=== PATIENT | male | born 1945 | race Hispanic/Latino ===

== ENCOUNTER → 2017-09-05 | Outpatient (CLI) | payer OTHER ==
[~2017-09-05] MED LIST: AEC81 PO; AMLO5TAB2 PO; CARV3.12 PO; CIPR-245 PO; FINA5TAB41 PO; SILO8CAP PO
== END | disposition home or self-care (01) ==
LOC: RAH 12:52
PROVIDERS: ATTEND Urology
DX: N45.3 Epididymo-orchitis (principal); N43.2 Other hydrocele
CPT/HCPCS: 76870

== ENCOUNTER → 2020-10-20 | Outpatient (CLI) | payer OTHER ==
[~2020-10-20] MED LIST changes: +AMLO-257 PO; -AMLO5TAB2 PO; -CIPR-245 PO; +CIPR500T10 PO; -SILO8CAP PO; +SILO8CAP2 PO
== END | disposition home or self-care (01) ==
LOC: RAH 14:45
PROVIDERS: ATTEND Internal Medicine
DX: J84.10 Pulmonary fibrosis, unspecified (principal); J43.2 Centrilobular emphysema
CPT/HCPCS: 71046

== ENCOUNTER → 2020-12-29 | Outpatient (CLI) | payer OTHER ==
[~2020-12-29] MED LIST changes: +IOHEXOL 350 MG/ML 100ML INFUS..BTL IV ONE
== END | disposition home or self-care (01) ==
LOC: RAH 07:41
PROVIDERS: ATTEND Internal Medicine
DX: K80.20 Calculus of gallbladder without cholecystitis without obstruction (principal); J47.9 Bronchiectasis, uncomplicated; N28.1 Cyst of kidney, acquired; R63.4 Abnormal weight loss; J84.112 Idiopathic pulmonary fibrosis; K76.89 Other specified diseases of liver
CPT/HCPCS: 74177; Q9967

== ENCOUNTER → 2022-03-13 | Outpatient (CLI) | payer OTHER ==
[~2022-03-13] MED LIST changes: -IOHEXOL 350 MG/ML 100ML INFUS..BTL IV ONE
== END | disposition home or self-care (01) ==
LOC: RAH 15:32
PROVIDERS: ATTEND Internal Medicine
DX: M47.815 Spondylosis without myelopathy or radiculopathy, thoracolumbar region (principal)
CPT/HCPCS: 71046

== ENCOUNTER → 2022-08-21 | Outpatient (CLI) | payer OTHER | END | disposition home or self-care (01) | LOC: RAH 13:59 | PROVIDERS: ATTEND Internal Medicine Cardiovascular Disease | DX: I27.20 Pulmonary hypertension, unspecified (principal); I11.9 Hypertensive heart disease without heart failure; J84.10 Pulmonary fibrosis, unspecified; R94.31 Abnormal electrocardiogram [ECG] [EKG]; R05.8 Other specified cough | CPT/HCPCS: 93306 ==

== ENCOUNTER 2022-11-11 10:41 | Emergency (ER) | payer OTHER ==
[~2022-11-11] VITALS: Ht 177.8 cm; Wt 77.1 kg
[2022-11-11 11:25] LABS: BASOPHILS % (AUTO) 0.2 % (0.0-5.0); HEMATOCRIT 36.3 % (42-54); LYMPHOCYTES % (AUTO) 2.1 % (21.0-51.0); MEAN CORPUSCULAR HEMOGLOBIN 24.4 pg (27.0-33.0); MEAN CORPUSCULAR HGB CONC 30.3 g/dL (32.0-36.0); MEAN CORPUSCULAR VOLUME 80.5 fL (79-99); NEUTROPHILS % (AUTO) 94.3 % (40.0-77.0); PLATELET COUNT (AUTO) 316 K/uL (130-400); RED BLOOD CELL COUNT(AUTO) 4.51 MIL/uL (4.50-6.20); RED CELL DISTRIBUTION WIDTH 15.2 % (11.0-15.5); WHITE BLOOD COUNT (AUTO) 14.1 K/uL (4.8-10.8)
[2022-11-11] MEDS ORDERED: KETOROLAC 30MG VIAL (30MG/ML) IVP ONE (11:30)
[2022-11-11] MEDS ORDERED: FAMOTIDINE 20MG TAB PO ONE (11:30)
[2022-11-11] MEDS ORDERED: 0.9%NACL 1000ML 1,000 ML IV ONE (11:30)
[2022-11-11] MEDS ORDERED: ONDANSETRON 4MG INJ IVP ONE (11:30)
[2022-11-11 11:37] LABS: CREATININE 0.9 mg/dL (0.5-1.5); POTASSIUM 3.9 mmol/L (3.5-5.1)
[2022-11-11 11:43] LABS: ALBUMIN 2.7 g/dL (3.5-5.0); TOTAL PROTEIN, SERUM 7.4 g/dL (6.0-8.3)
[2022-11-11 11:58] LABS: APPEARANCE,URINE CLEAR (CLEAR); BILIRUBIN,URINE 0.5 mg/dL (NEGATIVE); COLOR,URINE YELLOW (YELLOW); GLUCOSE, URINE (UA) NEGATIVE (NEGATIVE); KETONES,URINE 5 mg/dL (NEGATIVE); LEUKOCYTE ESTERASE ,URINE 75 Leu/uL (NEGATIVE); NITRATE,URINE NEGATIVE (NEGATIVE); OCCULT BLOOD,URINE NEGATIVE (NEGATIVE); PROTEIN,URINE 50 mg/dL (NEGATIVE)
[2022-11-11] MEDS ORDERED: IOHEXOL 350 MG/ML 100ML INFUS..BTL IV ONE (12:00)
[2022-11-11 12:16] LABS: BACTERIA,URINE RARE /HPF (None Seen); MUCUS,URINE RARE LPF (None Seen); SQUAMOUS EPITHELIAL CELL,UR RARE /HPF (0-2)
[2022-11-11] MEDS ORDERED: CEFTRIAXONE 2GM VIAL IVP ONE (13:30)
[2022-11-11] MEDS ORDERED: LINA145C PO (13:41)
[2022-11-11] MEDS ORDERED: DSSL PO (13:41)
[2022-11-11] MEDS ORDERED: CEPH500C2 PO (13:41)
[2022-11-11 14:38] VITALS: BP 123/72
== END 2022-11-11 15:12 | disposition home or self-care (01) ==
LOC: EDH 10:41
DX: N39.0 Urinary tract infection, site not specified (principal); K59.00 Constipation, unspecified; I10 Essential (primary) hypertension; Z79.82 Long term (current) use of aspirin
CPT/HCPCS: 99285; 74177; 96374; 71045; 96361; 96375; 84484 ×2; 80053; 83690; 85025; 87088; 81001; 36415; 93005; J7030; J0696; J2405; J1885; Q9967

== ENCOUNTER 2022-11-12 04:26 | Inpatient (IN) | payer OTHER ==
[~2022-11-12] VITALS: Ht 172.7 cm; Wt 89.8 kg
[~2022-11-12 04:26] MED LIST changes: +CEPH500C2 PO; +DSSL PO; +LINA145C PO
[2022-11-12 05:13] LABS: BASOPHILS % (AUTO) 0.2 % (0.0-5.0); EOSINOPHILS % (AUTO) 0.1 % (0.0-8.0); LYMPHOCYTES % (AUTO) 3.7 % (21.0-51.0); MEAN CORPUSCULAR HEMOGLOBIN 24.3 pg (27.0-33.0); MEAN CORPUSCULAR HGB CONC 30.3 g/dL (32.0-36.0); MEAN CORPUSCULAR VOLUME 80.4 fL (79-99); MONOCYTES % (AUTO) 1.6 % (3.0-13.0); PLATELET COUNT (AUTO) 306 K/uL (130-400); RED BLOOD CELL COUNT(AUTO) 4.48 MIL/uL (4.50-6.20); RED CELL DISTRIBUTION WIDTH 15.4 % (11.0-15.5); WHITE BLOOD COUNT (AUTO) 20.3 K/uL (4.8-10.8)
[2022-11-12 05:23] LABS: CARBON DIOXIDE 26 mmol/L (21-32); CHLORIDE 104 mmol/L (101-111); GLOMERULAR FILTR. RATE CALC 78 mL/min (>90); GLUCOSE,RANDOM 123 mg/dL (70-105); POTASSIUM 4.2 mmol/L (3.5-5.1); SODIUM SERUM 139 mmol/L (136-145); UREA NITROGEN, BLOOD 33 mg/dL (7-18)
[2022-11-12 05:26] LABS: APPEARANCE,URINE CLEAR (CLEAR); BILIRUBIN,URINE NEGATIVE (NEGATIVE); COLOR,URINE YELLOW (YELLOW); GLUCOSE, URINE (UA) NEGATIVE (NEGATIVE); KETONES,URINE NEGATIVE (NEGATIVE); LEUKOCYTE ESTERASE ,URINE NEGATIVE Leu/uL (NEGATIVE); NITRATE,URINE NEGATIVE (NEGATIVE); OCCULT BLOOD,URINE NEGATIVE (NEGATIVE); PROTEIN,URINE 50 mg/dL (NEGATIVE)
[2022-11-12 05:27] LABS: ALANINE AMINOTRANSFERASE 16 U/L (12-78); ALBUMIN 2.5 g/dL (3.5-5.0); ASPARTATE AMINOTRANSFERASE 14 U/L (10-37); TOTAL PROTEIN, SERUM 7.3 g/dL (6.0-8.3)
[2022-11-12 05:30] LABS: LIPASE < 50 U/L (114-286)
[2022-11-12 05:42] LABS: B-TYPE NATRIURETIC PEPTIDE 161 pg/mL (0-100)
[2022-11-12] MEDS ORDERED: MAG/ALUM/SIMETH 30 ML UDCUP PO PRN (07:00)
[2022-11-12] MEDS ORDERED: MAGNESIUM 2GM PREMIX 50ML 50 ML IV PRN (07:00)
[2022-11-12] MEDS ORDERED: HYDROCODONE/ACETAMINOPHEN 5/325 MG TAB PO PRN ×2 (07:00)
[2022-11-12] MEDS ORDERED: NITROGLYCERIN 0.4 MG SL TAB SL PRN (07:00)
[2022-11-12] MEDS ORDERED: ONDANSETRON 4MG INJ IV PRN (07:00)
[2022-11-12] MEDS ORDERED: GUAIFENESIN-DM 200/20 MG 10 ML PO PRN (07:00)
[2022-11-12] MEDS ORDERED: LIDOCAINE HCL-MPF 1% 2ML VIAL IV PRN (07:00)
[2022-11-12] MEDS ORDERED: VANCOMYCIN 1G/250ML KIT 250 ML IV ONE (07:00)
[2022-11-12] MEDS ORDERED: DIPHENHYDRAMINE HCL 25 MG CAPSULE PO PRN (07:00)
[2022-11-12] MEDS ORDERED: KCL 20 MEQ ERTAB PO PRN (07:00)
[2022-11-12] MEDS ORDERED: DiphenhydrAMINE HCL 50 MG/ML VIAL IV PRN (07:00)
[2022-11-12] MEDS ORDERED: LACTULOSE 20 GM/30 ML UDCUP PO PRN (07:00)
[2022-11-12] MEDS ORDERED: HYDROMORPHONE 1 MG INJ IV PRN (07:00)
[2022-11-12] MEDS ORDERED: ACETAMINOPHEN 325 MG TAB PO PRN ×2 (07:00)
[2022-11-12] MEDS ORDERED: POTASSIUM CHLORIDE 20MEQ/100ML 100 ML IV PRN (07:00)
[2022-11-12] MEDS ORDERED: POTASSIUM CHLORIDE 10% ELIXIR 20 MEQ/15 ML UDCUP PO PRN (07:00)
[2022-11-12] MEDS ORDERED: VANCOMYCIN PROTOCOL PER PHARMACY IV SCH (07:30)
[2022-11-12 08:00] LABS: INR 1.23 (0.85-1.15); PROTHROMBIN TIME 13.3 SEC (9.6-11.6)
[2022-11-12 08:01] LABS: PARTIAL THROMBOPLASTIN TIME 30.3 SEC (26.3-35.5)
[2022-11-12] MEDS: CEFEPIME HCL 2 GM VIAL IVP SCH ×2 (08:19→19:46)
[2022-11-12] MEDS: LACTATED RINGERS 1000ML 1,000 ML IV SCH ×2 (08:19→21:57)
[2022-11-12 08:30] LABS: THYROID STIMULATING HORMONE < 0.01 uIU/mL (0.36-3.74)
[2022-11-12 08:47] LABS: % IRON SATURATION 2.8 % (30-44)
[2022-11-12] MEDS: FAMOTIDINE 20MG TAB PO SCH ×2 (09:00→19:47)
[2022-11-12] MEDS ORDERED: ENOXAPARIN SODIUM 40 MG/0.4 ML SYRINGE SQ SCH (09:00)
[2022-11-12] MEDS ORDERED: FINASTERIDE 5 MG TABLET PO SCH (09:00)
[2022-11-12] MEDS: FAMOTIDINE 20MG VIAL IV SCH ×2 (10:48→19:46)
[2022-11-12] MEDS: IPRATROPIUM/ALBUTEROL SULFATE 3 ML SOLUTION IH SCH ×3 (11:07→23:33)
[2022-11-12 12:00] VITALS: BP 142/70
[2022-11-12] MEDS ORDERED: HYDROMORPHONE 0.5 MG SYG (0.5MG/0.5ML) IVP SCH (15:55)
[2022-11-12 16:00] VITALS: BP 124/74
[2022-11-12] MEDS ORDERED: HYDROMORPHONE 0.5 MG SYG (0.5MG/0.5ML) IVP ONE (16:30)
[2022-11-12] MEDS ORDERED: PEG 3350/NA SULF,BICARB,CL/KCL 4000 ML SOLN PO SCH (17:00)
[2022-11-12] MEDS ORDERED: PEG 3350/NA SULF,BICARB,CL/KCL 4000 ML SOLN PO ONE (17:30)
[2022-11-12] MEDS: VANCOMYCIN 1.25 GM/250 ML BAG 250 ML IV SCH (19:46)
[2022-11-12 19:54] VITALS: BP 123/83
[2022-11-12] MEDS: HYDROMORPHONE 0.5 MG SYG (0.5MG/0.5ML) IVP PRN (22:52)
[2022-11-12 23:37] VITALS: BP 116/70
[2022-11-13 02:26] LABS: BASOPHILS % (AUTO) 0.2 % (0.0-5.0); EOSINOPHILS % (AUTO) 0.4 % (0.0-8.0); HEMATOCRIT 39.5 % (42-54); MEAN CORPUSCULAR HEMOGLOBIN 24.5 pg (27.0-33.0); MEAN CORPUSCULAR HGB CONC 29.9 g/dL (32.0-36.0); MONOCYTES % (AUTO) 1.6 % (3.0-13.0); NEUTROPHILS % (AUTO) 92.6 % (40.0-77.0); PLATELET COUNT (AUTO) 441 K/uL (130-400); RED BLOOD CELL COUNT(AUTO) 4.82 MIL/uL (4.50-6.20); RED CELL DISTRIBUTION WIDTH 15.3 % (11.0-15.5); WHITE BLOOD COUNT (AUTO) 13.4 K/uL (4.8-10.8)
[2022-11-13] MEDS ORDERED: IPRATROPIUM/ALBUTEROL SULFATE 3 ML SOLUTION IH PRN ×2 (02:30)
[2022-11-13] MEDS: HYDROMORPHONE 0.5 MG SYG (0.5MG/0.5ML) IVP PRN ×2 (02:32→07:57)
[2022-11-13 02:36] LABS: ABG BASE EXCESS -3.2 mmol/L (-2.0-3.0); ABG HCO3 20.6 mmol/L (21.0-28.0); ABG OXYGEN SATURATION 96.5 % (95.0-99.0); ABG PCO2 34 mmHg (35-48)
[2022-11-13 02:43] LABS: ALBUMIN 2.5 g/dL (3.5-5.0); CREATININE 1.3 mg/dL (0.5-1.5); MAGNESIUM 2.1 mg/dL (1.80-2.40); PHOSPHORUS 4.4 mg/dL (2.5-4.9); POTASSIUM 4.3 mmol/L (3.5-5.1); TOTAL PROTEIN, SERUM 7.5 g/dL (6.0-8.3)
[2022-11-13 02:47] LABS: B-TYPE NATRIURETIC PEPTIDE 76 pg/mL (0-100)
[2022-11-13] MEDS: IPRATROPIUM 0.5 MG/2.5 ML INH IH SCH ×3 (03:42→11:15)
[2022-11-13 04:45] VITALS: BP 118/76
[2022-11-13] MEDS: CEFEPIME HCL 2 GM VIAL IVP SCH (07:50)
[2022-11-13 08:00] VITALS: BP 98/71
[2022-11-13] MEDS ORDERED: FUROSEMIDE 20MG VIAL IV SCH (08:00)
[2022-11-13] MEDS ORDERED: FUROSEMIDE 20MG VIAL ONE (08:10)
[2022-11-13] MEDS: VANCOMYCIN 1.25 GM/250 ML BAG 250 ML IV SCH (08:52)
[2022-11-13] MEDS ORDERED: LACTATED RINGERS 1000ML IV SCH (10:00)
[2022-11-13] MEDS ORDERED: COMPOUND IV MISC 1 EACH IVSOLN MISC PRN (11:00)
[2022-11-13] MEDS ORDERED: METRONIDAZOLE 500MG/100ML BAG 100 ML IVPB SCH (14:00)
[2022-11-13] MEDS ORDERED: IRON SUCROSE COMPLEX 300 MG in 0.9% NACL 250ML 250 ML IV SCH (21:00)
== END 2022-11-13 11:45 | disposition short-term general hospital (02) | DRG 871 ==
LOC: EDH 04:26 → EDHIP 06:45 → 4BH 08:58
PROVIDERS: ADMIT Internal Medicine; ATTEND Internal Medicine
PROC: 0D9670Z Drainage of Stomach with Drainage Device, Via Natural or Artificial Opening (ICD-10-PCS; principal; 2022-11-13)
DX: A41.9 Sepsis, unspecified organism (principal); J96.01 Acute respiratory failure with hypoxia; K56.609 Unspecified intestinal obstruction, unspecified as to partial versus complete obstruction; E46 Unspecified protein-calorie malnutrition; J90 Pleural effusion, not elsewhere classified; D49.0 Neoplasm of unspecified behavior of digestive system; J44.9 Chronic obstructive pulmonary disease, unspecified; E03.9 Hypothyroidism, unspecified; Z20.822 Contact with and (suspected) exposure to COVID-19; J84.112 Idiopathic pulmonary fibrosis; R33.8 Other retention of urine; N40.1 Benign prostatic hyperplasia with lower urinary tract symptoms; D50.9 Iron deficiency anemia, unspecified; I10 Essential (primary) hypertension; I25.10 Atherosclerotic heart disease of native coronary artery without angina pectoris; I27.20 Pulmonary hypertension, unspecified; K80.20 Calculus of gallbladder without cholecystitis without obstruction; N32.81 Overactive bladder; N28.1 Cyst of kidney, acquired; Z87.891 Personal history of nicotine dependence; Z79.899 Other long term (current) drug therapy; Z68.30 Body mass index [BMI] 30.0-30.9, adult
CPT/HCPCS: 36415; 36600; 71045; 71250; 80053; 80202; 81003; 82803; 83540; 83550; 83605; 83690; 83735; 83880; 84100; 84443; 84484; 85025; 85610; 85730; 87040; 87426; 94640; 94664; G0378; J0692; J1170; J1650; J1756; J1940; J3370; J3490; J7050